=== PATIENT | male | born 1980 | race Caucasian/White ===

== ENCOUNTER 2017-06-10 05:45 | Emergency (ER) | payer BC ==
[2017-06-10] MEDS ORDERED: HYDROmorphone 2 MG/ML SDV IVPUSH ONE (05:56)
[2017-06-10] MEDS ORDERED: Ketorolac 30 MG/ML SDV IVPUSH ONE (05:56)
[2017-06-10] MEDS ORDERED: Sodium Chloride 0.9% 1,000 ML IV ONE (05:56)
[2017-06-10] MEDS ORDERED: Ondansetron 4 MG/2 ML SDV IVPUSH ONE ×2 (05:56→07:23)
[2017-06-10 06:30] LABS: CHLORIDE,CL 102 mmol/L (98-107); SODIUM,NA 136 mmol/L (136-148)
--- NOTE | 2017-06-10 06:59 | EDM.PDOC ---
<Darren Mckeon J - Last Filed: 06/10/17 06:56> ED HPI GENERAL MEDICAL PROBLEM - General Chief Complaint: Back Pain or Injury Stated Complaint: BACK PAIN Time Seen by Provider: 06/10/17 06:55 - History of Present Illness INITIAL COMMENTS - FREE TEXT/NARRATIVE: HISTORY AND PHYSICAL: History of present illness: Patient 36-year-old male presents with concern of abdominal back pain this is vaguely described as minimal associated vomiting diarrhea fever or chills he denies trauma states he has a history of back pain and feels that the abdominal pain has aggravated his back pain. Review of systems: As per history of present illness and below otherwise all systems reviewed and negative. Past medical history: As per history of present illness and as reviewed below otherwise noncontributory. Surgical history: As per history of present illness and as reviewed below otherwise noncontributory. Social history: No reported history of drug or alcohol abuse. Family history: As per history of present illness and as reviewed below otherwise noncontributory. Physical exam: HEENT: Atraumatic, normocephalic, pupils reactive, negative for conjunctival pallor or scleral icterus, mucous membranes moist, throat clear, neck supple, nontender, trachea midline. Lungs: Clear to auscultation, breath sounds equal bilaterally, chest nontender. Heart: S1S2, regular, negative for clicks, rubs, or JVD. Abdomen: Soft, nondistended, no localized tenderness. Negative for masses or hepatosplenomegaly. Negative for costovertebral tenderness. Pelvis: Stable nontender. Genitourinary: Deferred. Rectal: Deferred. Extremities: Atraumatic, negative for cords or calf pain. Neurovascular unremarkable. Neuro: Awake, alert, oriented. Cranial nerves II through XII unremarkable. Cerebellum unremarkable. Motor and sensory unremarkable throughout. Exam nonfocal. Back: No vertebral body or point tenderness patient is able stand on his toes back on his heels deep tendon reflexes are normal Diagnostics: CBC CMP lipase UA CT abdomen and pelvis Therapeutics: Saline 1 L bolus Dilaudid 1 mg IV and Toradol 30 mg IV Zofran 4 mg IV Impression: #1 nonspecific abdominal pain #2 chronic intermittent back pain Definitive disposition and diagnosis as appropriate pending reevaluation and review of above. back pain Pain Score (Numeric/FACES): 4 - Related Data Allergies Allergy/AdvReac Type Severity Reaction Status Date / Time No Known Allergies Allergy Verified 06/10/17 05:55 Home Meds: Home Meds . [No Known Home Meds] 06/10/17 [History] Past Medical History HEENT History: Reports: None Cardiovascular History: Reports: None Respiratory History: Reports: None Gastrointestinal History: Reports: None Genitourinary History: Reports: None Musculoskeletal History: Reports: Other (See Below) Other Musculoskeletal History: Fracture L1 Neurological History: Reports: None Psychiatric History: Reports: None Endocrine/Metabolic History: Reports: None Hematologic History: Reports: None Immunologic History: Reports: None Oncologic (Cancer) History: Reports: None Dermatologic History: Reports: None - Infectious Disease History Infectious Disease History: Reports: None - Past Surgical History Musculoskeletal Surgical History: Reports: None Social & Family History - Family History Family Medical History: Noncontributory - Tobacco Use Smoking Status *Q: Never Smoker - Caffeine Use Caffeine Use: Reports: Coffee, Energy Drinks, Soda, Tea - Recreational Drug Use Recreational Drug Use: No ED ROS GENERAL - Review of Systems Review Of Systems: ROS reveals no pertinent complaints other than HPI. ED EXAM, GENERAL - Physical Exam Exam: See Below (See dictation) Course - Vital Signs Last Recorded V/S: Last Vital Signs Temp 96.7 F 06/10/17 07:32 Pulse 80 06/10/17 07:32 Resp 14 06/10/17 07:32 BP 110/70 06/10/17 07:32 Pulse Ox 93 L 06/10/17 07:32 - Orders/Labs/Meds Orders: Active Orders 24 hr Category Date Time Status EKG Documentation Completion [RC] STAT Care 06/10/17 05:56 Active Abdomen Pelvis wo Cont [CT] Stat Exams 06/10/17 05:56 Taken Pantoprazole [ProTONIX IV] Med 06/10/17 08:00 Once 80 mg IVPUSH .BOLUS ONE Labs: Laboratory Tests 06/10/17 06/10/17 06/10/17 Range/Units 06:00 06:00 07:23 WBC 8.52 (4.0-11.0) K/uL RBC 5.04 (4.50-5.90) M/uL Hgb 15.2 (13.0-17.0) g/dL Hct 43.7 (38.0-50.0) % MCV 86.7 (80.0-98.0) fL MCH 30.2 (27.0-32.0) pg MCHC 34.8 (31.0-37.0) g/dL RDW Std Deviation 41.4 (28.0-62.0) fl RDW Coeff of Ryan 13 (11.0-15.0) % Plt Count 206 (150-400) K/uL MPV 10.00 (7.40-12.00) fL Neut % (Auto) 82.5 H (48.0-80.0) % Lymph % (Auto) 6.0 L (16.0-40.0) % [place] % (Auto) 9.4 (0.0-15.0) % Eos % (Auto) 2.0 (0.0-7.0) % Baso % (Auto) 0.1 (0.0-1.5) % Neut # (Auto) 7.0 H (1.4-5.7) K/uL Lymph # (Auto) 0.5 L (0.6-2.4) K/uL [place] # (Auto) 0.8 (0.0-0.8) K/uL Eos # (Auto) 0.2 (0.0-0.7) K/uL Baso # (Auto) 0.0 (0.0-0.1) K/uL Nucleated RBC % 0.0 /100WBC Nucleated RBCs # 0 K/uL Sodium 136 (136-148) mmol/L Potassium 3.8 (3.5-5.1) mmol/L Chloride 102 (98-107) mmol/L Carbon Dioxide 25.2 (21.0-32.0) mmol/L BUN 17 (7.0-18.0) mg/dL Creatinine 1.0 (0.8-1.3) mg/dL Est Cr Clr Drug Dosing 114.24 mL/min Estimated GFR (MDRD) > 60.0 ml/min Glucose 97 (74-106) mg/dL Calcium 9.0 (8.5-10.1) mg/dL Total Bilirubin 0.6 (0.2-1.0) mg/dL AST 32 (15-37) IU/L ALT 46 (14-63) IU/L Alkaline Phosphatase 79 (46-116) U/L Troponin I < 0.050 (0.000-0.056) ng/mL Total Protein 7.5 (6.4-8.2) g/dL Albumin 4.1 (3.4-5.0) g/dL Globulin 3.4 (2.0-3.5) g/dL Albumin/Globulin Ratio 1.2 L (1.3-2.8) Amylase 42 (25-115) U/L Lipase 90 (73-393) U/L Urine Color YELLOW Urine Appearance CLEAR Urine pH 6.5 (5.0-8.0) Ur Specific [place] <= 1.005 (1.001-1.035) Urine Protein NEGATIVE (NEGATIVE) mg/dL Urine Glucose (UA) NEGATIVE (NEGATIVE) mg/dL Urine Ketones NEGATIVE (NEGATIVE) mg/dL Urine Occult Blood NEGATIVE (NEGATIVE) Urine Nitrite NEGATIVE (NEGATIVE) Urine Bilirubin NEGATIVE (NEGATIVE) Urine Urobilinogen 0.2 (<2.0) EU/dL Ur Leukocyte Esterase NEGATIVE (NEGATIVE) Urine RBC 0-1 (0-2/HPF) Urine WBC 0-1 (0-5/HPF) Ur Epithelial Cells RARE (NONE-FEW) Urine Bacteria RARE (NEGATIVE) Meds: Medications Discontinued Medications Generic Name Dose Route Start Last Admin Trade Name Freq PRN Reason Stop Dose Admin Hydromorphone HCl 1 mg 06/10/17 05:56 06/10/17 06:06 Dilaudid IVPUSH 06/10/17 05:57 1 mg ONETIME ONE Administration Sodium Chloride 1,000 mls @ 999 mls/hr 06/10/17 05:56 06/10/17 06:03 Normal Saline IV 06/10/17 06:56 999 mls/hr .Bolus ONE Administration Ketorolac Tromethamine 30 mg 06/10/17 05:56 06/10/17 06:05 Toradol IVPUSH 06/10/17 05:57 30 mg ONETIME ONE Administration Ondansetron HCl 4 mg 06/10/17 05:56 06/10/17 06:05 Zofran IVPUSH 06/10/17 05:57 4 mg ONETIME ONE Administration Ondansetron HCl 8 mg 06/10/17 07:23 06/10/17 07:29 Zofran IVPUSH 06/10/17 07:24 8 mg ONETIME ONE Administration Departure - Departure Time of Disposition: 06:58 Disposition: Home, Self-Care 01 Condition: Good Clinical Impression: Abdominal pain, Back pain - Discharge Information Referrals: Gerhard Mcdowell MD [Primary Care Provider] - Forms: ED Department Discharge Additional Instructions: Medication as prescribed Rest fluids nutrition Clear liquid diet 24 hours Follow-up with primary care in 2 weeks Return if symptoms persist or worsen or new concerning symptoms develop [facility] [address] [place] [id number] The following information is given to patients seen in the emergency department who are being discharged to home. This information is to outline your options for follow-up care. We provide all patients seen in our emergency department with a follow-up referral. The need for follow-up, as well as the timing and circumstances, are variable depending upon the specifics of your emergency department visit. If you don't have a primary care physician on staff, we will provide you with a referral. We always advise you to contact your personal physician following an emergency department visit to inform them of the circumstance of the visit and for follow-up with them and/or the need for any referrals to a consulting specialist. The emergency department will also refer you to a specialist when appropriate. This referral assures that you have the opportunity for follow-up care with a specialist. All of these measure are taken in an effort to provide you with optimal care, which includes your follow-up. Under all circumstances we always encourage you to contact your private physician who remains a resource for coordinating your care. When calling for follow-up care, please make the office aware that this follow-up is from your recent emergency room visit. If for any reason you are refused follow-up, please contact the [facility] emergency department at and asked to speak to the emergency department charge nurse. - My Orders Last 24 Hours: My Active Orders 06/10/17 08:00 Pantoprazole [ProTONIX IV] 80 mg IVPUSH .BOLUS ONE - Assessment/Plan Last 24 Hours: My Active Orders 06/10/17 08:00 Pantoprazole [ProTONIX IV] 80 mg IVPUSH .BOLUS ONE <Ze Bess - Last Filed: 06/10/17 08:04> ED HPI GENERAL MEDICAL PROBLEM - History of Present Illness INITIAL COMMENTS - FREE TEXT/NARRATIVE: I've seen and examined the patient and agree with the above Gen. no acute distress HEENT grossly within normal limits Chest clear CV regular Abdomen soft nondistended no localized tenderness no organomegaly bowel sounds present Extremities full range of motion strength 5 out of 5 no edema OFFSET [employer] alert nonfocal Back no vertebral point tenderness Diagnostics as below CT abdomen pelvis no acute findings Therapeutics proton X 80 mg IV Zofran 8 mg ODT every 8 hours when necessary #30 no refill Rest fluids nutrition Follow-up with primary care 2 weeks Impression #1 gastroenteritis #2 chronic low back pain Definitive disposition and diagnosis as appropriate pending reevaluation and review of above.
[2017-06-10] MEDS ORDERED: Pantoprazole 40 MG Vial IVPUSH ONE (08:00)
--- NOTE | 2017-06-10 14:15 | CT ---
EXAM DATE: 06/10/17 PATIENT'S AGE: 36 Patient: ESAU BLAIR Facility: [place], [place] Site . Site : [id number] Study: CT Abdomen/Pelvis wo cont [id number]/[id number] 6:41:01 AM Ordering Physician: Doctor Caceres Final Report: INDICATION: Back and abdominal pain. TECHNIQUE: A CT volumetric acquisition was performed of the abdomen and pelvis without IV contrast. FINDINGS: CT images demonstrate minimal subpleural passive atelectasis at the lung bases. There is no evidence of pleural or pericardial fluid. Within the abdomen the liver and spleen appear normal size. There is a tiny 5 mm lucency within segment of the liver which is too small to characterize but could reflect a small biliary cyst. Spleen has uniform density. There is mild distention of the stomach but I see no evidence of inflammation about the gastric wall and no evidence of a mass within the antrum or duodenum. There is no evidence of inflammation within the pancreas. Gallbladder and bile ducts are normal size. The adrenal glands have normal morphology. The kidneys appear symmetric. There are faint areas of subtle increased density within the central medullary pyramids but there is no discrete stone. There is no evidence of edema or hydronephrosis within either kidney. The ureters appear normal in size. There is a normal appearance of the small intestine. The appendix is visualized in the right lower quadrant and appears normal. There is no evidence of inflammation within the colon. The prostate gland and urinary bladder appear normal. 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 IMPRESSION: 1. Subtle areas of increased density within the central medullary pyramids which may indicate potential medullary sponge kidney. No evidence of ureteral calculus or hydronephrosis. 2. 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 Please note that all CT scans at this facility use dose modulation, iterative reconstruction, and/or weight-based dosing when appropriate to reduce radiation dose to as low as reasonably achievable. Dictated by Darren Burns MD @ Jun 10 2017 7:05AM (Electronic Signature) Report Signed by Proxy. DIEGO
== END 2017-06-10 08:50 | disposition home or self-care (01) ==
LOC: MW.ED 05:45
DX: K52.9 Noninfective gastroenteritis and colitis, unspecified (principal); R10.9 Unspecified abdominal pain; M54.9 Dorsalgia, unspecified; G89.29 Other chronic pain
CPT/HCPCS: 36415; 74176; 80053; 81001; 82150; 83690; 84484; 85025; 93005; 96361; 96374; 96375; 96376; 99284; C9113; J1170; J1885; J2405; J7040; 99283

== ENCOUNTER 2018-07-17 19:24 | Emergency (ER) | payer BC ==
--- NOTE | 2018-07-17 19:46 | EDM.PDOC ---
ED HPI GENERAL MEDICAL PROBLEM - General Chief Complaint: Upper Extremity Injury/Pain Stated Complaint: INJURED WRIST Time Seen by Provider: 07/17/18 19:31 - History of Present Illness INITIAL COMMENTS - FREE TEXT/NARRATIVE: HISTORY AND PHYSICAL: History of present illness: Patient 37-year-old white male who presents a concern of acute left hand injury per blunt force trauma. He denies other trauma or concern Review of systems: As per history of present illness and below otherwise all systems reviewed and negative. Past medical history: As per history of present illness and as reviewed below otherwise noncontributory. Surgical history: As per history of present illness and as reviewed below otherwise noncontributory. Social history: No reported history of drug or alcohol abuse. Family history: As per history of present illness and as reviewed below otherwise noncontributory. Physical exam: HEENT: Atraumatic, normocephalic, pupils reactive, negative for conjunctival pallor or scleral icterus, mucous membranes moist, throat clear, neck supple, nontender, trachea midline. Lungs: Clear to auscultation, breath sounds equal bilaterally, chest nontender. Heart: S1S2, regular, negative for clicks, rubs, or JVD. Abdomen: Soft, nondistended, nontender. Negative for masses or hepatosplenomegaly. Negative for costovertebral tenderness. Pelvis: Stable nontender. Genitourinary: Deferred. Rectal: Deferred. Extremities: Patient has some pain with small swelling over the dorsal aspect of his left hand is no crepitation maximal tenderness is over the second and third distal metacarpals Neuro: Awake, alert, oriented. Cranial nerves II through XII unremarkable. Cerebellum unremarkable. Motor and sensory unremarkable throughout. Exam nonfocal. Diagnostics: X-ray left hand Therapeutics: None Impression: Umber 1 acute left hand injury ( blunt force trauma) Definitive disposition and diagnosis as appropriate pending reevaluation and review of above. - Related Data Allergies Allergy/AdvReac Type Severity Reaction Status Date / Time No Known Allergies Allergy Verified 03/12/18 19:59 Home Meds: Home Meds Albuterol [Ventolin HFA] 1 puff INH Q4H #1 inhaler 03/12/18 [Rx] OXcarbazepine [Oxcarbazepine] 300 mg PO BID 03/12/18 [History] Sertraline [Zoloft] 100 mg PO DAILY 03/12/18 [History] Past Medical History HEENT History: Reports: None Cardiovascular History: Reports: None Respiratory History: Reports: None Gastrointestinal History: Reports: None Other Gastrointestinal History: hernia Genitourinary History: Reports: None Musculoskeletal History: Reports: Other (See Below) Other Musculoskeletal History: Fracture L1 Neurological History: Reports: None Psychiatric History: Reports: None Endocrine/Metabolic History: Reports: None Hematologic History: Reports: None Immunologic History: Reports: None Oncologic (Cancer) History: Reports: None Dermatologic History: Reports: None - Infectious Disease History Infectious Disease History: Reports: None - Past Surgical History Musculoskeletal Surgical History: Reports: None Social & Family History - Family History Family Medical History: Noncontributory - Caffeine Use Caffeine Use: Reports: Coffee, Energy Drinks, Soda, Tea Review of Systems - Review of Systems Review Of Systems: ROS reveals no pertinent complaints other than HPI. ED EXAM, GENERAL - Physical Exam Exam: See Below (dictation) Course - Orders/Labs/Meds Orders: Active Orders 24 hr Category Date Time Status Hand Comp Min 3V Lt [CR] Stat Exams 07/17/18 19:33 Ordered Departure - Departure Time of Disposition: 19:45 Disposition: Home, Self-Care 01 Condition: Good Clinical Impression: Hand injury - Discharge Information Referrals: PCP,Unknown [Primary Care Provider] - Additional Instructions: The following information is given to patients seen in the emergency department who are being discharged to home. This information is to outline your options for follow-up care. We provide all patients seen in our emergency department with a follow-up referral. The need for follow-up, as well as the timing and circumstances, are variable depending upon the specifics of your emergency department visit. If you don't have a primary care physician on staff, we will provide you with a referral. We always advise you to contact your personal physician following an emergency department visit to inform them of the circumstance of the visit and for follow-up with them and/or the need for any referrals to a consulting specialist. The emergency department will also refer you to a specialist when appropriate. This referral assures that you have the opportunity for followup care with a specialist. All of these measure are taken in an effort to provide you with optimal care, which includes your followup. Under all circumstances we always encourage you to contact your private physician who remains a resource for coordinating your care. When calling for followup care, please make the office aware that this follow-up is from your recent emergency room visit. If for any reason you are refused follow-up, please contact the [facility] emergency department at and asked to speak to the emergency department charge nurse. Follow-up primary medical doctor as needed as discussed Motrin/Tylenol as directed to return as needed as discussed - My Orders Last 24 Hours: My Active Orders 07/17/18 19:33 Hand Comp Min 3V Lt [CR] Stat - Assessment/Plan Last 24 Hours: My Active Orders 07/17/18 19:33 Hand Comp Min 3V Lt [CR] Stat
--- NOTE | 2018-07-17 20:02 | CR ---
Indication: Fall. Technique: Three views of the left hand were obtained. Comparison: None Findings: Degenerative changes of the left hand are identified. A well corticated calcific densities identified posterior at the level of the distal interphalangeal joint space. This appears to be chronic. No acute fracture is identified. Impression: No definite acute fracture. Dictated by Lilian Dalal MD @ Jul 17 2018 7:59PM Signed by Dr. Lilian Dalal @ Jul 17 2018 8:00PM
== END 2018-07-17 20:24 | disposition home or self-care (01) ==
LOC: MW.ED 19:24
DX: S69.92XA Unspecified injury of left wrist, hand and finger(s), initial encounter (principal); Z79.899 Other long term (current) drug therapy; W18.09XA Striking against other object with subsequent fall, initial encounter; Y93.89 Activity, other specified
CPT/HCPCS: 73130-26-LT; 73130-LT; 99283; 99283-25

== ENCOUNTER 2020-05-12 18:49 | Emergency (ER) | payer OTHER ==
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
[2020-05-12] MEDS ORDERED: Sodium Chloride 0.9% 1,000 ML IV ONE (19:43)
[2020-05-12 19:55] LABS: ACETAMINOPHEN <2.0 ug/mL; BLOOD UREA NITROGEN,BUN 15 mg/dL (7.0-18.0); CARBON DIOXIDE,CO2 24.1 mmol/L (21.0-32.0); CHLORIDE,CL 105 mmol/L (98-107); GLUCOSE RANDOM 105 mg/dL (74-106); POTASSIUM,K 3.6 mmol/L (3.5-5.1); SODIUM,NA 140 mmol/L (136-148)
--- NOTE | 2020-05-12 22:06 | PCM.SN.2 ---
- Free Text/Narrative Note: EKG: As interpreted by ER physician: [place]: Nonspecific ST-T wave abnormalities Normal axis No evidence of ST elevation [place] Normal sinus rhythm heart rate of 71
== END 2020-05-12 23:23 ==
LOC: MW.ED 18:49
DX: T56.892A Toxic effect of other metals, intentional self-harm, initial encounter (principal); T44.7X2A Poisoning by beta-adrenoreceptor antagonists, intentional self-harm, initial encounter
CPT/HCPCS: 36415; 80053; 80143; 80179; 80305; 80307; 81001; 83735; 84443; 85025; 93005; 99285; J7030; 93010; 99284

== ENCOUNTER 2021-10-03 11:45 | Emergency (ER) | payer SELFPAY ==
[2021-10-03] MEDS ORDERED: Lidocaine 1% with EPINEPHrine 1:100,000 10 ML MDV INJECT ONE (11:47)
[2021-10-03] MEDS ORDERED: Diphtheria,Pertussis(Acell),Tetanus Vaccine 0.5 ML Syringe IM ONE (11:47)
== END 2021-10-03 12:33 | disposition home or self-care (01) ==
LOC: MW.ED 11:45
DX: S81.811A Laceration without foreign body, right lower leg, initial encounter (principal); Z23 Encounter for immunization; W26.8XXA Contact with other sharp object(s), not elsewhere classified, initial encounter
CPT/HCPCS: 12002; 90471; 90715; 99282; 99282-25

== ENCOUNTER 2022-03-02 20:53 | Emergency (ER) | payer BC ==
[2022-03-02] MEDS ORDERED: Lactated Ringers 1,000 ML IV STA (21:02)
[2022-03-02] MEDS ORDERED: diphenhydrAMINE 50 MG/ML SDV IVPUSH ONE (21:02)
[2022-03-02] MEDS ORDERED: Famotidine 20 MG/2 ML SDV IVPUSH STA (21:03)
[2022-03-02] MEDS ORDERED: Ondansetron 4 MG/2 ML SDV IVPUSH ONE (21:03)
[2022-03-02] MEDS ORDERED: methylPREDNISolone Sodium Succinate 125 MG/2 ML SDV IVPUSH ONE (21:03)
[2022-03-02] MEDS ORDERED: EPINEPHrine 1 MG/1 ML Amp IM ONE (21:03)
== END 2022-03-02 22:52 | disposition left against medical advice (07) ==
LOC: MW.ED 20:53
DX: T78.2XXA Anaphylactic shock, unspecified, initial encounter (principal); Z86.16 Personal history of COVID-19
CPT/HCPCS: 96361; 96372; 96374; 96375; 99284; J0171; J1200; J2405; J2930; J3490; J7120; 99291

== ENCOUNTER 2024-02-01 18:35 | Emergency (ER) | payer BC ==
[2024-02-01] MEDS: Morphine 4 MG/ML Syringe IVPUSH ONE ×2 (19:19→21:28)
[2024-02-01] MEDS: Acetaminophen/HYDROcodone 325-10 MG Tab PO ONE (22:15)
== END 2024-02-01 22:50 | disposition home or self-care (01) ==
LOC: MW.ED 18:35
DX: S42.352A Displaced comminuted fracture of shaft of humerus, left arm, initial encounter for closed fracture (principal); Z86.16 Personal history of COVID-19; W00.0XXA Fall on same level due to ice and snow, initial encounter
CPT/HCPCS: 73060; 96374; 96376; 99284; A9270; J2270